=== PATIENT | female | born 1960 | race African-American/Black ===

== ENCOUNTER 2024-06-14 16:19 | Emergency (ER) | payer MEDICARE, MEDICAID ==
[~2024-06-14] VITALS: Ht 175.3 cm; Wt 102.9 kg
[2024-06-14 16:35] VITALS: TEMP 98.6; O2SAT 97
[2024-06-14 17:12] LABS: BASOPHILS % 0.6 % (0.0-2.0); EOSINOPHILS % 8.9 % (0.0-5.0); HEMATOCRIT. 40.3 % (36.0-48.0); LYMPHOCYTES % 44.1 % (20.0-50.0); MEAN CORPUSCULAR HEMOGLOBIN 26.9 pg (28.0-32.0); MEAN CORPUSCULAR HGB CONC 32.3 g/dL (31.0-37.0); MEAN CORPUSCULAR VOLUME 83.1 fL (81.0-99.0); MEAN PLATELET VOLUME 8.9 fl (7.4-10.4); MONOCYTES % 10.6 % (2.0-8.0); NEUTROPHILS % 35.8 % (40.0-76.0); PLATELET 262 x1000/uL (130-400); RED BLOOD CELL COUNT 4.84 mill/uL (4.2-5.4)
[2024-06-14 17:32] LABS: CHLORIDE 100 mEq/L (98-107); POTASSIUM 4.1 mEq/L (3.5-5.1); SODIUM 138 mEq/L (136-145)
[2024-06-14 17:33] LABS: CARBON DIOXIDE 26 mEq/L (21-32)
[2024-06-14 17:38] LABS: CREATININE 1.5 mg/dL (0.6-1.0); GLUCOSE 145 mg/dL (70-105)
[2024-06-14 17:39] LABS: TROPONIN I HIGH SENSITIVITY < 4 ng/L (3.0-34); UREA NITROGEN BLOOD 32 mg/dL (9-23)
[2024-06-14 17:40] LABS: ALANINE AMINOTRANSFERASE 11 IU/L (10-49); ASPARTATE AMINOTRANSFERASE 14 IU/L (<34)
[2024-06-14 17:41] LABS: BILIRUBIN DIRECT 0.1 mg/dL (<=3.0); BILIRUBIN TOTAL 0.4 mg/dL (0.1-1.0); PROTEIN TOTAL 7.7 g/dL (6.0-8.3)
[2024-06-14 18:29] VITALS: BP 107/69; PULSE 74; RESP 16
== END 2024-06-14 18:35 | disposition home or self-care (01) ==
LOC: ER 16:19
DX: R00.2 Palpitations (principal); E11.9 Type 2 diabetes mellitus without complications; E78.00 Pure hypercholesterolemia, unspecified; I10 Essential (primary) hypertension
CPT/HCPCS: 36415; 71045; 80048; 80076; 84484; 85025; 93005; 99285

== ENCOUNTER 2024-09-09 11:20 | Emergency (ER) | payer BC, MEDICAID ==
[~2024-09-09] VITALS: Ht 170.2 cm; Wt 100.0 kg
[2024-09-09 12:03] VITALS: BP 141/82; PULSE 75; RESP 18; TEMP 98.8; O2SAT 100
[2024-09-09] MEDS ORDERED: BENZ100C86 MT (13:23)
== END 2024-09-09 14:04 | disposition home or self-care (01) ==
LOC: ER 11:20
DX: B34.9 Viral infection, unspecified (principal); E11.9 Type 2 diabetes mellitus without complications; E78.00 Pure hypercholesterolemia, unspecified; I10 Essential (primary) hypertension
CPT/HCPCS: 71045; 99283

== ENCOUNTER 2024-09-18 22:20 | Emergency (ER) | payer BC, MEDICAID ==
[~2024-09-18] VITALS: Ht 172.7 cm; Wt 108.0 kg
[~2024-09-18 22:20] MED LIST: BENZ100C86 MT
[2024-09-18 22:33] VITALS: O2SAT 100
[2024-09-18] MEDS ORDERED: CEPH500T MT (22:52)
[2024-09-18 23:05] VITALS: BP 138/89; PULSE 68; RESP 16; TEMP 36.72516; O2SAT 100
== END 2024-09-18 23:05 | disposition home or self-care (01) ==
LOC: ER 22:20
DX: L03.116 Cellulitis of left lower limb (principal); E11.9 Type 2 diabetes mellitus without complications; I10 Essential (primary) hypertension
CPT/HCPCS: 99283

== ENCOUNTER 2024-11-17 19:46 | Emergency (ER) | payer BC, MEDICAID ==
[~2024-11-17] VITALS: Ht 175.3 cm; Wt 104.0 kg
[~2024-11-17 19:46] MED LIST changes: +CEPH500T MT
[2024-11-17 20:10] VITALS: O2SAT 97
[2024-11-17 20:51] LABS: CLARITY URINE CLEAR (CLEAR); COLOR URINE YELLOW (YELLOW); GLUCOSE URINE NEGATIVE (NEGATIVE); KETONES URINE 1+ (NEGATIVE); LEUKOCYTE ESTERASE URINE NEGATIVE (NEGATIVE); NITRITE URINE NEGATIVE (NEGATIVE); OCCULT BLOOD URINE 1+ (NEGATIVE); PH URINE 5.5 (4.5-8.0); PROTEIN URINE TRACE (NEGATIVE); SPECIFIC GRAVITY URINE 1.019 (1.005-1.030)
[2024-11-17 21:13] LABS: BACTERIA URINE 1+; SQUAMOUS EPITHELIAL CELL URINE 1+ /lpf (RARE/1+); WBC URINE 0-2 /hpf (0-2)
[2024-11-17 21:35] LABS: DIFFERENTIAL COMMENT 1; HEMOGLOBIN. 12.4 g/dL (12.0-16.0); MEAN CORPUSCULAR HEMOGLOBIN 26.9 pg (28.0-32.0); MEAN CORPUSCULAR HGB CONC 32.6 g/dL (31.0-37.0); MEAN CORPUSCULAR VOLUME 82.5 fL (81.0-99.0); MEAN PLATELET VOLUME 8.5 fl (7.4-10.4); PLATELET 218 x1000/uL (130-400); RED BLOOD CELL COUNT 4.61 mill/uL (4.2-5.4); RED CELL DISTRIBUTION WIDTH 16.3 % (11.6-14.6); WHITE BLOOD COUNT 3.5 x1000/uL (4.5-11.0)
[2024-11-17 21:40] LABS: CHLORIDE 101 mEq/L (98-107); POTASSIUM 4.1 mEq/L (3.5-5.1); SODIUM 136 mEq/L (136-145)
[2024-11-17 21:41] LABS: CARBON DIOXIDE 24 mEq/L (21-32)
[2024-11-17 21:42] LABS: CALCIUM 9.5 mg/dL (8.7-10.4)
[2024-11-17 21:46] LABS: GLUCOSE 81 mg/dL (70-105); UREA NITROGEN BLOOD 12 mg/dL (9-23)
[2024-11-17 21:47] LABS: TROPONIN I HIGH SENSITIVITY 4 ng/L (3.0-34)
[2024-11-17 22:24] LABS: ANISOCYTOSIS 1+; GIANT PLATELETS FEW; PLATELET ESTIMATE NORMAL
[2024-11-17 23:52] VITALS: BP 137/79; PULSE 92; RESP 18; TEMP 37.78080; O2SAT 97
[2024-11-25] MEDS ORDERED: GLIP10TA17 PO (14:10)
[2024-11-25] MEDS ORDERED: METF-416 PO (14:10)
[2024-11-25] MEDS ORDERED: BENA-8 PO (14:10)
[2024-11-25] MEDS ORDERED: ASPI-1497 PO (14:10)
[2024-11-25] MEDS ORDERED: AMLO5TAB88 PO (14:10)
[2024-11-25] MEDS ORDERED: ATOR20TA65 PO (14:10)
== END 2024-11-17 23:55 | disposition home or self-care (01) ==
LOC: ER 19:46
DX: J06.9 Acute upper respiratory infection, unspecified (principal); E11.9 Type 2 diabetes mellitus without complications; I10 Essential (primary) hypertension; E78.5 Hyperlipidemia, unspecified
CPT/HCPCS: 36415; 71045; 80048; 81003; 84484; 85025; 93005; 99285